=== PATIENT | male | born 1955 | race Caucasian/White ===

== ENCOUNTER → 2019-11-02 10:06 | Outpatient (BNVA) | payer MEDICARE, MEDICAID, SELFPAY | PROVIDERS: Family Provider Internal Medicine; PCP Internal Medicine; Visit Provider Specialist | DX: G40.319 Generalized idiopathic epilepsy and epileptic syndromes, intractable, without status epilepticus (principal) | CPT/HCPCS: 99213 ==

== ENCOUNTER → 2021-05-22 09:49 | Outpatient (BNVA) | payer MEDICARE, MEDICAID, SELFPAY | PROVIDERS: Family Provider Internal Medicine; PCP Internal Medicine; Visit Provider Specialist | DX: G40.219 Localization-related (focal) (partial) symptomatic epilepsy and epileptic syndromes with complex partial seizures, intractable, without status epilepticus (principal); G40.419 Other generalized epilepsy and epileptic syndromes, intractable, without status epilepticus; Z87.820 Personal history of traumatic brain injury; R26.89 Other abnormalities of gait and mobility; Z99.3 Dependence on wheelchair | CPT/HCPCS: 99212; 99214 ==

== ENCOUNTER 2021-08-24 11:50 | Emergency (ER) | payer MEDICARE, MEDICAID, SELFPAY ==
[2021-08-24 11:57] VITALS: BP 134/72; PULSE 70; RESP 18; TEMP 37; O2SAT 95
--- NOTE | 2021-08-24 12:02 | CTR_ITS ---
PROCEDURE INFORMATION: Exam: CT Maxillofacial Without Contrast Exam date and time: 08/24/2021 12:18 PM Age: 66 years old Clinical indication: Injury or trauma; Blunt trauma (contusions or hematomas); Orbit/periorbital; Right; Injury date: 08/24/21; Injury details: Ground level fall x today. RT superior orbital laceration, ; prior surgery; Surgery type: Traumatic brain injury; Additional info: R superior orbital lac TECHNIQUE: Imaging protocol: Computed tomography images of the face without contrast. Radiation optimization: All CT scans at this facility use at least one of these dose optimization techniques: automated exposure control; mA and/or kV adjustment per patient size (includes targeted exams where dose is matched to clinical indication); or iterative reconstruction. COMPARISON: CT head wo con* [id number] 08/24/2021 12:14 PM RADIATION DOSE METRICS: Total DLP (mGy-cm): 734.23 FINDINGS: Orbital cavities: Orbits are normal. Globes are unremarkable. Bones/joints: No acute fracture. Paranasal sinuses: Normal. No air-fluid levels. Soft tissues: There is a right supraorbital soft tissue laceration. 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 CT/CT facial bones wo con* [id number] IMPRESSION: No acute bony abnormality.
--- NOTE | 2021-08-24 12:02 | CTR_ITS ---
PROCEDURE INFORMATION: Exam: CT Cervical Spine Without Contrast Exam date and time: 08/24/2021 12:20 PM Age: 66 years old Clinical indication: Injury or trauma; Blunt trauma; Injury date: 08/24/21; Injury details: Ground level fall x today. RT superior orbital laceration, ; prior surgery; Surgery type: Traumatic brain injury; Additional info: Fall/trauma TECHNIQUE: Imaging protocol: Computed tomography images of the cervical spine without contrast. Radiation optimization: All CT scans at this facility use at least one of these dose optimization techniques: automated exposure control; mA and/or kV adjustment per patient size (includes targeted exams where dose is matched to clinical indication); or iterative reconstruction. COMPARISON: CT facial bones wo con* [id number] 08/24/2021 12:18 PM RADIATION DOSE METRICS: Total DLP (mGy-cm): 604.06 FINDINGS: Bones/joints: No acute fracture. Normal alignment. Discs/Spinal canal/Neural foramina: Chronic degenerative changes are present with disc space narrowing sclerosis and osteophytes especially at C5-C6 and C6-C7. There is mild spinal stenosis and neural foraminal narrowing. No severe spinal canal stenosis. Lungs: Lung apices are normal. Soft tissues: Unremarkable. CT/CT cervical spin wo con* [id number] IMPRESSION: Chronic degenerative disease. No acute abnormality.
--- NOTE | 2021-08-24 12:02 | CTR_ITS ---
PROCEDURE INFORMATION: Exam: CT Head Without Contrast Exam date and time: 08/24/2021 12:14 PM Age: 66 years old Clinical indication: Injury or trauma; Blunt trauma (contusions or hematomas); Injury date: 08/24/21; Injury details: Ground level fall x today. RT superior orbital laceration, ; prior surgery; Surgery type: Traumatic brain injury; Additional info: Fall/trauma; R superior orbital laceration TECHNIQUE: Imaging protocol: Computed tomography of the head without contrast. Radiation optimization: All CT scans at this facility use at least one of these dose optimization techniques: automated exposure control; mA and/or kV adjustment per patient size (includes targeted exams where dose is matched to clinical indication); or iterative reconstruction. COMPARISON: CT head wo con* [id number] 01/03/2017 8:32 AM RADIATION DOSE METRICS: Total DLP (mGy-cm): 1465.97 FINDINGS: Brain: There is generalized chronic atrophy with prominence of the ventricles and sulci. There is left parietal encephalomalacia consistent with old injury. There is decreased white matter density which indicates chronic small vessel white matter ischemia. There is no intracranial hemorrhage or other acute abnormality. Cerebral ventricles: The ventricles are enlarged due to chronic atrophy and the left cephalo malacia. Paranasal sinuses: Visualized sinuses are unremarkable. No fluid levels. Mastoid air cells: Visualized mastoid air cells are well aerated. 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 Bones/joints: Old left craniotomy. Soft tissues: There is subcutaneous laceration over the left supraorbital region. CT/CT head wo con* [id number] IMPRESSION: No acute intracranial abnormality.
--- NOTE | 2021-08-24 12:03 | W.ED.HEATRA ---
HPI - Head Injury General: Chief complaint: Fall Stated complaint: FALL/HEAD LAC Time Seen by Provider: 08/24/21 11:58 Source: EMS Mode of arrival: EMS Limitations: other (TBI) History of Present Illness: Patient is a 66-year-old male with a history of a TBI and epilepsy here from his residence of [facility] following a fall. According to EMS and [facility], patient is wheelchair-bound and cannot ambulate on his own. Staff at [facility] (I contacted them myself) stated that patient has a transfer bar on his bed and stated he used this bar to try to get out of bed on his own and ended up falling and striking his right superior orbital region on a portion of the bed. No epileptic activity. They reported patient seemed to be at his mental baseline following the event. MD Complaint: head injury Onset (ago): hour(s) Mechanism of Injury: fall Place: home (nursing facility) Loss of Consciousness: no Location of injury: frontal Other Injuries: none Review of Systems General: Reports: ROS unobtainable due to mental status PFS ED PFSH: Medical History Diffuse traumatic brain injury Generalized epilepsy, intractable Resume routine monitoring of dilantin levels q 3 months. Major depressive disorder, single episode, unspecified Social History Smoking and tobacco status: current every day smoker cigarettes Quit status (tobacco): not considering quitting Second hand smoke exposure: Yes Smoking risk assessment/counseling performed?: Yes Tobacco counseling given: provider counseling and counseling >3 minutes Alcohol intake: former Caregiver/support person: Yes Lives independently: No Housing: [facility] Current occupational status: retired Current gender identity: Male Physical Exam Const: COMMON NORMALS: no acute distress, alert and well nourished EXAM LIMITATIONS: other limitations (history of TBI; would not normally know orientation questions) GENERAL APPEARANCE: cooperative ORIENTATION/CONSCIOUSNESS: Yes awake and Yes oriented to person OTHER: attempts for orientation but is inaccurate HENMT: COMMON NORMALS: normocephalic, atraumatic and Normal external nose present HEAD & SCALP: normal to inspection, normocephalic and atraumatic FACE & SINUS: other (large laceration to R superior orbital region); no crepitus and no ecchymosis FACE & SINUS IMAGES: 1. laceration NOSE: Normal external nose present MOUTH: other (no intraoral injuries noted) Eye: COMMON NORMALS: Equal, round and reactive pupils present and EOMs intact bilaterally GENERAL EYE: appearance normal, both eyes and all related structures and normal light reflex PUPIL: Yes Equal, round and reactive pupils present DIRECT OPHTHALMOSCOPY: Yes normal light reflex Neck/C-Spine: GENERAL: Yes normal visual inspection CERVICAL SPINE: Yes cervical ROM normal and No Cervical spine tenderness Resp: COMMON NORMALS: normal respiratory effort and clear to auscultation bilaterally AUSCULTATION: clear to auscultation bilaterally Cardio: COMMON NORMALS: regular rate and regular rhythm RATE: regular rate RHYTHM: regular rhythm Back/Pelvis: COMMON NORMALS: thoracic and lumbar spine normal to inspection Extremity: COMMON NORMALS: normal to inspection Neuro: VIANEY COMA SCALE: document GCS findings Brainard coma scale eye opening: Spontaneous Vianey coma scale verbal response: Confused (chronic for patient) Vianey coma scale motor response: Obey commands Vianey coma scale total score: 14 SENSORIUM/ORIENTATION: Yes alert and Yes oriented to person Skin: NARRATIVE SKIN EXAM: laceration to R superior orbit; otherwise normal skin exam Procedures Laceration Laceration 1: Site: face Side (If applicable): right Size (cm): 3.5 Description: stellate and irregular Depth: involves muscle layer Local Anesthetic: lidocaine 1% and with epi Amount of anesthesia used (mL): 5.0 Pre-repair: wound explored and irrigated extensively Skin layer closed with: nylon Size (cm): 4-0 Number of sutures: 9 Technique: simple, interrupted and running Muscle layer closed with: vicryl Size: 5-0 Number of sutures: 5 Technique: running Course Vital Signs: Vital signs: Vital Signs Temperature 98.6 F 08/24/21 11:57 Pulse Rate 70 08/24/21 11:57 Respiratory Rate 18 08/24/21 11:57 Blood Pressure 134/72 08/24/21 11:57 Pulse Oximetry 95 08/24/21 11:57 MDM - Head Injury Medcial Decision Making CTs negative. Laceration repaired as documented. No other injuries requiring intervention at this time. Patient is stable for DC back to [facility]. Lab Data Radiology Impressions Cervical Spine CT 08/24/21 12:02 IMPRESSION: Chronic degenerative disease. No acute abnormality. Face CT 08/24/21 12:02 IMPRESSION: No acute bony abnormality. Head CT 08/24/21 12:02 IMPRESSION: No acute intracranial abnormality. Discharge Plan Discharge Patient Disposition: Home Clinical Impression: Fall from bed Qualifiers: Encounter type: initial encounter Qualified Code(s): W06.XXXA - Fall from bed, initial encounter Laceration of right orbital rim without complication Qualifiers: Encounter type: initial encounter Qualified Code(s): S01.111A - Laceration without foreign body of right eyelid and periocular area, initial encounter Condition: Stable Prescriptions: No Action citalopram 40 mg tablet 40 mg PO DAILY 0RF magnesium hydroxide [Milk of Magnesia] 400 mg/5 mL suspension 30 ml PO DAILY PRN0RF acetaminophen [Tylenol] 325 mg tablet 325 mg PO QID PRN0RF lamotrigine [Lamictal] 200 mg tablet 200 mg PO BID 0RF olanzapine [Zyprexa] 5 mg tablet 5 mg PO .AT HS 0RF simvastatin 10 mg tablet 10 mg PO DAILY 0RF tamsulosin 0.4 mg capsule 0.4 mg PO DAILY 0RF pantoprazole [Protonix] 40 mg tablet,delayed release (DR/EC) 40 mg PO DAILY 0RF folic acid 400 mcg tablet 0.4 mg PO DAILY 0RF furosemide [Lasix] 40 mg tablet 40 mg PO DAILY 0RF ondansetron HCl [Zofran] 4 mg tablet 4 mg PO Q8H 0RF cyanocobalamin (vitamin B-12) 1,000 mcg capsule 1,000 mcg PO DAILY 0RF clobazam [Onfi] 20 mg tablet 20 mg PO DAILY Qty: 30 3RF phenytoin sodium extended 200 mg capsule 200 mg PO BID Qty: 60 0RF Discharge Orders: Discharge ED (Routine); Ordered 08/24/21 Ordered By: Kyleigh Lemons Referrals: Sheldon Munoz MD [Primary Care Provider] - Patient Instructions: Laceration (DC), Head Injury (DC) Activity Restrictions/Additional Instructions: Keep wound/laceration clean with warm soap and water twice daily. Monitor for signs of infection such as redness, swelling, increased pain, or drainage. Please seek medical re-evaluation if these occur. If you received sutures today these will need to be removed (unless you were told by the provider that they are absorbable). The provider should have discussed with you the length of time until removal-7 DAYS. You may return to the emergency department for this service. If your wound was closed with Steri-Strips or glue/adhesive these will fall off within the next week or so. Coding Level of Care Code ED Typing Bookkeeper for Jalen Schulz Exam Comprehensive
--- NOTE | 2021-08-24 13:23 | PC.NURSE ---
Report called to Troy at [facility].
[2021-08-24 14:39] VITALS: BP 129/79; PULSE 72; RESP 18; O2SAT 94
[2021-08-24 16:04] VITALS: BP 135/72; PULSE 86; RESP 16; O2SAT 96
--- NOTE | 2021-08-24 16:30 | PC.NURSE ---
Incontinent of urine, skin cleaned and new adult diaper placed.
== END 2021-08-24 19:38 | disposition home or self-care (01) ==
PROVIDERS: Emergency Provider Physician Assistant; PCP Internal Medicine
DX: S01.111A Laceration without foreign body of right eyelid and periocular area, initial encounter (principal); W06.XXXA Fall from bed, initial encounter; Y92.129 Unspecified place in nursing home as the place of occurrence of the external cause; Z99.3 Dependence on wheelchair; F17.210 Nicotine dependence, cigarettes, uncomplicated; Z87.820 Personal history of traumatic brain injury
CPT/HCPCS: 12052; 70450; 70486; 72125; 99283

== ENCOUNTER → 2022-07-02 14:40 | Outpatient (BNVA) | payer MEDICARE, MEDICAID, SELFPAY | PROVIDERS: PCP Internal Medicine; Visit Provider Specialist | DX: G40.319 Generalized idiopathic epilepsy and epileptic syndromes, intractable, without status epilepticus (principal); Z87.820 Personal history of traumatic brain injury | CPT/HCPCS: 99213 ==

== ENCOUNTER → 2023-07-03 09:21 | Outpatient (BNVA) | payer MEDICARE, MEDICAID, SELFPAY | PROVIDERS: PCP Internal Medicine; Visit Provider Specialist | DX: G40.309 Generalized idiopathic epilepsy and epileptic syndromes, not intractable, without status epilepticus (principal) | CPT/HCPCS: 99213 ==

== ENCOUNTER 2024-05-14 16:55 | Emergency (ER) | payer MEDICARE, MEDICAID, SELFPAY ==
[2024-05-14] VITALS (10 sets, daily range): BP systolic 121–148; BP diastolic 60–86; PULSE 56–82; RESP 12–16; TEMP 36.5; O2SAT 92–96; BMI 23.6
--- NOTE | 2024-05-14 16:55 | XRR_ITS ---
PROCEDURE INFORMATION: Exam: XR Chest Exam date and time: 05/14/2024 5:48 PM Age: 69 years old Clinical indication: Other: Stroke signs; Additional info: Stroke alert, previous right sided stroke TECHNIQUE: Imaging protocol: Radiologic exam of the chest. Views: 1 view. COMPARISON: CT cervical spin wo con* [id number] 08/24/2021 12:20 PM FINDINGS: Lungs: Unremarkable. No consolidation. Pleural spaces: Unremarkable. No pleural effusion. No pneumothorax. Heart/Mediastinum: Unremarkable. No cardiomegaly. Bones/joints: Unremarkable. XR/XR chest 1V portable [id number] IMPRESSION: No acute findings.
--- NOTE | 2024-05-14 16:56 | CTR_ITS ---
PROCEDURE INFORMATION: Exam: CT Head Without Contrast Exam date and time: 05/14/2024 4:53 PM Age: 69 years old Clinical indication: Stroke-like symptoms; Speech disturbance; Additional info: Symptoms of acute stroke TECHNIQUE: Imaging protocol: Computed tomography of the head without contrast. Radiation optimization: All CT scans at this facility use at least one of these dose optimization techniques: automated exposure control; mA and/or kV adjustment per patient size (includes targeted exams where dose is matched to clinical indication); or iterative reconstruction. Other technique: STROKE PROTOCOL was implemented. COMPARISON: CT head wo con* [id number] 08/24/2021 12:14 PM RADIATION DOSE METRICS: Total DLP (mGy-cm): 1134.2 FINDINGS: Brain: Left parietal lobe cystic encephalomalacia. Moderate hypoattenuating foci are noted in the central cerebral, posterior superior periatrial and anterior lateral ventricular periventricular white matter bilaterally. No intracranial hemorrhage. No mass or acute cortical infarction identified. Ventricles: Prominence of the ventricular system and subarachnoid spaces is consistent with the patient's age of 69 years. Paranasal sinuses: Visualized sinuses are unremarkable. No fluid levels. Mastoid air cells: Visualized mastoid air cells are well aerated. Bones: Previous left pterional craniotomy. Soft tissues: Unremarkable. Vasculature: Left parasellar vascular aneurysm clipping. Atherosclerotic calcifications are present involving the carotid artery siphons bilaterally and the left vertebral artery. CT/CT head thrombolytic [id number] IMPRESSION: 1. Left parietal lobe cystic encephalomalacia. 2. Age appropriate supratentorial and infratentorial atrophy. 3. Moderate chronic white matter microvascular ischemic disease. 4. No acute intracranial abnormality identified. ASSESSMENT: ASPECTS (Jeanine Stroke Program Early CT Score) is 10.
--- NOTE | 2024-05-14 17:06 | ECG_ITS ---
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 Measurements Intervals [place] Rate: 58 P: 23 MN: 198 QRS: -52 QRSD: 95 T: -37 QT: 436 QTc: 429 Interpretive Statements SINUS BRADYCARDIA LEFT AXIS DEVIATION [QRS AXIS < -30] LOW QRS VOLTAGE IN PRECORDIAL LEADS [QRS DEFLECTION < 1.0 mV IN CHEST LEADS] PATTERN CONSISTENT WITH PULMONARY DISEASE INCOMPLETE RIGHT BUNDLE BRANCH BLOCK [90+ ms QRS DURATION, TERMINAL R IN V1/V2, 40+ ms S IN I/aVL/V4/V5/V6] ST DEVIATION AND MODERATE T-WAVE ABNORMALITY, CONSIDER INFERIOR ISCHEMIA [-0.1+ mV T-WAVE IN II/aVF] Compared to ECG 10/20/2016 20:52:30 T-wave abnormality now present Possible ischemia now present Sinus rhythm no longer present Electronically Signed On 05-15-2024 08:59:21 DIRECTOR IMMUNOLOGY by Lon Valerio M.D. [email or web address]
--- NOTE | 2024-05-14 17:16 | ED_ITS ---
HPI - Neuro Symptoms/Deficit 2 General: Chief Complaint: Neuro Symptoms/Deficit Stated Complaint: stroke alert Time Seen by Provider: 05/14/24 16:58 History of Present Illness: Patient seen and via EMS from correction. Patient was not able to hold a cigarette as well as normal and may be a speech was little bit off per correction. Patient has a known history of a traumatic brain injury prior stroke and prior aneurysm. He has baseline dysphagia, baseline left-sided facial droop and baseline right sided significant weakness. Related Data Home Medications Medication Instructions Recorded Confirmed acetaminophen 325 mg tablet 325 mg PO QID PRN 08/05/19 05/11/24 (Tylenol) citalopram 40 mg tablet 40 mg PO DAILY 08/05/19 05/11/24 lamotrigine 200 mg tablet 200 mg PO BID 08/05/19 05/11/24 (Lamictal) magnesium hydroxide 400 mg/5 mL 30 ml PO DAILY PRN 08/05/19 05/11/24 oral suspension (Milk of Magnesia) olanzapine 5 mg tablet (Zyprexa) 5 mg PO .AT HS 08/05/19 05/11/24 simvastatin 10 mg tablet 10 mg PO DAILY 08/05/19 05/11/24 tamsulosin 0.4 mg capsule 0.4 mg PO DAILY 08/05/19 05/11/24 cyanocobalamin (vitamin B-12) 1,000 mcg PO DAILY 05/22/21 05/11/24 1,000 mcg capsule folic acid 400 mcg tablet 0.4 mg PO DAILY 05/22/21 05/11/24 furosemide 40 mg tablet (Lasix) 40 mg PO DAILY 05/22/21 05/11/24 ondansetron HCl 4 mg tablet 4 mg PO Q8H 05/22/21 05/11/24 (Zofran) pantoprazole 40 mg tablet,delayed 40 mg PO DAILY 05/22/21 05/11/24 release (Protonix) Previous Rx's Medication Instructions Recorded clobazam 20 mg tablet (Onfi) 20 mg PO DAILY #30 tabs 11/23/19 phenytoin sodium extended 200 mg 200 mg PO BID #60 caps 03/28/21 capsule Allergies Allergy/AdvReac Type Severity Reaction Status Date / Time aspirin Allergy Unknown Verified 05/11/24 14:08 Penicillins Allergy Unknown Verified 05/11/24 14:08 Review of Systems 2 General: Reports: ROS unobtainable due to medical condition (Baseline dysarthria) PFSH ED 2 PFSH: Medical History Unspecified open wound, right thigh, initial encounter Open wound of right thigh Generalized epilepsy, intractable Resume routine monitoring of dilantin levels q 3 months. Diffuse traumatic brain injury Major depressive disorder, single episode, unspecified Social History Smoking and tobacco/nicotine status: current every day tobacco/nicotine user cigarettes Quit status (tobacco/nicotine): not considering quitting Second hand smoke exposure: Yes Alcohol intake: former Substance/Drug Use: former Caregiver/support person: Yes Lives independently: No Housing: Long-Term Current occupational status: retired Do you think of yourself as: Straight/Heterosexual Current gender identity: Male Physical Exam 2 Const: COMMON NORMALS: no acute distress OTHER: Unable to obtain NIH due to unknown baseline severity but suspect it would be less than 2 Resp: COMMON NORMALS: normal respiratory effort, No use of accessory muscles and clear to auscultation bilaterally AUSCULTATION: clear to auscultation bilaterally Cardio: COMMON NORMALS: regular rate and regular rhythm RATE: regular rate RHYTHM: regular rhythm GI: COMMON NORMALS: Soft to palpation and non-tender PALPATION: Yes Soft to palpation Neuro: OTHER: Patient appears to be at baseline per EMS report with known deficits from prior stroke Psych: COMMON NORMALS: normal affect OTHER: Baseline Course 2 Vital Signs: Vital signs: Vital Signs Temperature 97.7 F 05/14/24 17:00 Pulse Rate 62 05/14/24 22:49 Respiratory Rate 12 05/14/24 18:15 Blood Pressure 147/70 05/14/24 22:49 Pulse Oximetry 92 05/14/24 22:49 Oxygen Delivery Me thod Room Air 05/14/24 20:00 MDM - Neuro Symptoms/Deficit Medical Decision Making Patient with some baseline deficits but no severe right findings on exam for acute deficits. Patient with a negative head CT with aspect score 10. Patient's labs otherwise show no acute findings. Patient appears to be at his baseline. He will be discharged back to the care center. Lab Data 05/14/24 17:25 05/14/24 17:25 Radiology Impressions Chest X-Ray 05/14/24 16:55 IMPRESSION: No acute findings. Head CT 05/14/24 16:56 IMPRESSION: 1. Left parietal lobe cystic encephalomalacia. 2. Age appropriate supratentorial and infratentorial atrophy. 3. Moderate chronic white matter microvascular ischemic disease. 4. No acute intracranial abnormality identified. ASSESSMENT: ASPECTS (Jeanine Stroke Program Early CT Score) is 10. ADDENDUM: 05/14/24 9560 THIS REPORT CONTAINS FINDINGS THAT MAY BE CRITICAL TO PATIENT CARE. The findings were verbally communicated by me to Dr. Allen via telephone conference at 5:08 PM FILER FINISH on 05/14/2024. The findings were acknowledged and understood. Laboratory Results WBC 7.76 10^3/uL (3.29-11.43) 05/14/24 17: RBC 4.38 10^6/uL (3.85-5.65) 05/14/24 17: Hgb 14.00 g/dL (11.27-16.99) 05/14/24 17: Hct 42.6 % (37-53) 05/14/24 17: MCV 97.3 fl (82-101) 05/14/24 17: MCH 32.0 pg (27-33) 05/14/24 17: MCHC 32.9 g/dL (30-55) 05/14/24 17: RDW 13.1 % (12.1-15.1) 05/14/24 17: Plt Count 288 10^3/cmm (157-399) 05/14/24 17: MPV 10.1 fL (7.4-10.4) 05/14/24 17:25 Neut % (Auto) 61.8 % 05/14/24 17:25 Lymph % (Auto) 27.7 % 05/14/24 17:25 Coke % (Auto) 8.0 % 05/14/24 17: Eos % (Auto) 1.4 % 05/14/24 17:25 Baso % (Auto) 0.8 % 05/14/24 17: Neut # (Auto) 4.80 10^3/uL (1.8-7.7) 05/14/24 17:25 Lymph # (Auto) 2.2 10^3/uL (0.8-4.8) 05/14/24 17:25 Coke # (Auto) 0.6 10^3/uL (0.2-0.9) 05/14/24 17:25 Eos # (Auto) 0.1 10^3/uL (0.0-0.8) 05/14/24 17:25 Baso # (Auto) 0.1 10^3/uL (0.0-0.1) 05/14/24 17:25 Nucleated RBC % (auto) 0 % 05/14/24 17:25 Nucleated RBCs # 0.0 /100WBC 05/14/24 17:25 PT 12.90 SECONDS (12.1-14.9) 05/14/24 17: INR 0.91 (0.8-1.2) 05/14/24 17:25 APTT 51.0 SECONDS (23.9-36.7) H 05/14/24 17:25 Sodium 139 mmol/L (136-145) 05/14/24 17:25 Potassium 4.4 mmol/L (3.5-5.1) 05/14/24 17:25 Chloride 98 mmol/L (98-107) 05/14/24 17:25 Carbon Dioxide 32 mmol/L (22-29) H 05/14/24 17:25 Anion Gap 13.4 (5-19) 05/14/24 17:25 BUN 14 mg/dL (8-23) 05/14/24 17:25 Creatinine 0.7 mg/dL (0.7-1.2) 05/14/24 17:25 GFR Calculation 112.5 mL/min (90-130) 05/14/24 17:25 Glucose 71 mg/dL (65-115) 05/14/24 17:25 POC Glucose 81 mg/dL (70-110) 05/14/24 17:09 Calculated Osmolality 287 mOsm/kg (285-295) 05/14/24 17:25 Calcium 9.3 mg/dL (8.5-10.5) 05/14/24 17:25 Total Bilirubin 0.3 mg/dL (0.15-1.2) 05/14/24 17:25 AST 14 U/L (0-40) 05/14/24 17:25 ALT 8 U/L (0-41) 05/14/24 17:25 Alkaline Phosphatase 141 U/L (40-130) H 05/14/24 17:25 Total Protein 8.7 g/dL (6.6-8.7) 05/14/24 17:25 Albumin 4.6 g/dL (3.5-5.2) 05/14/24 17:25 Globulin 4.1 g/dL (1.3-4.6) 05/14/24 17:25 Urine Color Yellow (Yellow) 05/14/24 18:55 Urine Appearance Clear (CLEAR) 05/14/24 18:55 Urine pH 6.0 (5-7) 05/14/24 18:55 Ur Specific [place] 1.014 (1.005-1.030) 05/14/24 18:55 Urine Protein Negative (Negative) 05/14/24 18:55 Urine Glucose (UA) Negative (Normal) 05/14/24 18:55 Urine Ketones Negative (Negative) 05/14/24 18:55 Urine Blood Negative (Negative) 05/14/24 18:55 Urine Nitrate Negative (Negative) 05/14/24 18:55 Urine Bilirubin Negative (Negative) 05/14/24 18:55 Urine Urobilinogen 1.0 mg/dL (Negative) 05/14/24 18:55 Ur Leukocyte Esterase Negative (Negative) 05/14/24 18:55 Urine RBC 0-2 /hpf (0-2) 05/14/24 18:55 Urine WBC 0-5 /hpf (0-5) 05/14/24 18:55 Ur Squamous Epith Cells 0-5 /hpf (0-5) 05/14/24 18:55 Amorphous Sediment Not Reportable 05/14/24 18:55 Urine Bacteria None seen /hpf (NONE) 05/14/24 18:55 Hyaline Casts 2.46 /lpf 05/14/24 18:55 Urine Opiates Screen Negative ng/mL (Negative) 05/14/24 18:55 Ur Barbiturates Screen Positive ng/mL (Negative) H 05/14/24 18:55 Ur Phencyclidine Scrn Negative ng/mL (Negative) 05/14/24 18:55 Ur Amphetamines Screen Negative ng/mL (Negative) 05/14/24 18:55 U Benzodiazepines Scrn Positive ng/mL (Negative) H 05/14/24 18:55 Urine Cocaine Screen Negative ng/mL (Negative) 05/14/24 18:55 U Marijuana (THC) Screen Negative ng/mL (Negative) 05/14/24 18:55 All radiology interpretation(s) finalized by discharge Discharge Plan Discharge Patient Disposition: Home Clinical Impression: Diffuse traumatic brain injury, Transient cerebral ischemia Condition: Stable Prescriptions: No Action citalopram 40 mg tablet 40 mg PO DAILY magnesium hydroxide [Milk of Magnesia] 400 mg/5 mL suspension 30 ml PO DAILY PRN acetaminophen [Tylenol] 325 mg tablet 325 mg PO QID PRN lamotrigine [Lamictal] 200 mg tablet 200 mg PO BID olanzapine [Zyprexa] 5 mg tablet 5 mg PO .AT HS simvastatin 10 mg tablet 10 mg PO DAILY tamsulosin 0.4 mg capsule 0.4 mg PO DAILY pantoprazole [Protonix] 40 mg tablet,delayed release (DR/EC) 40 mg PO DAILY folic acid 400 mcg tablet 0.4 mg PO DAILY furosemide [Lasix] 40 mg tablet 40 mg PO DAILY ondansetron HCl [Zofran] 4 mg tablet 4 mg PO Q8H cyanocobalamin (vitamin B-12) 1,000 mcg capsule 1,000 mcg PO DAILY lidocaine HCl [Lidocaine Viscous] 2 % solution 1 applic topical ONCE Qty: 1 0RF lidocaine HCl [Lidocaine Viscous] 2 % solution 1 applic topical ONCE Qty: 1 0RF lidocaine HCl [Lidocaine Viscous] 2 % solution 1 applic topical ONCE Qty: 1 0RF lidocaine HCl [Lidocaine Viscous] 2 % solution 1 applic topical ONCE Qty: 1 0RF clobazam [Onfi] 20 mg tablet 20 mg PO DAILY Qty: 30 3RF phenytoin sodium extended 200 mg capsule 200 mg PO BID Qty: 60 0RF Discharge Orders: Discharge ED (Routine); Ordered 05/14/24 Ordered By: Roger Allen Referrals: Sheldon Munoz MD [Primary Care Provider] - Discharge Diet: Usual diet Discharge Activity: Resume usual activity Patient Instructions: Cognitive Disorders after Traumatic Brain Injury (ED), Opioid Safety, Pain Management, TIA Activity Restrictions/Additional Instructions: Please have patient follow-up with his primary care provider for continued outpatient management and reevaluation. Continue current care. Coding Level of Care Code ED Powder Blender for Jalen Schulz
[2024-05-14 17:24] LABS: Glucose Point of Care 81 mg/dL (70-110)
[2024-05-14 17:44] LABS: Basophils # 0.1 10^3/uL (0.0-0.1); Basophils % 0.8 %; Eosinophils # 0.1 10^3/uL (0.0-0.8); Eosinophils % 1.4 %; Hematocrit 42.6 % (37-53); Lymphocytes # 2.2 10^3/uL (0.8-4.8); Lymphocytes % 27.7 %; Mean Corpuscular HGB Conc 32.9 g/dL (30-55); Mean Corpuscular Volume 97.3 fl (82-101); Mean Platelet Volume 10.1 fL (7.4-10.4); Monocytes # 0.6 10^3/uL (0.2-0.9); Neutrophils % 61.8 %; Nucleated Red Blood Cells % 0 %; Platelet Count 288 10^3/cmm (157-399); Red Blood Count 4.38 10^6/uL (3.85-5.65); Red Cell Distribution Width 13.1 % (12.1-15.1); White Blood Count 7.76 10^3/uL (3.29-11.43)
[2024-05-14 17:53] LABS: INR 0.91 (0.8-1.2)
[2024-05-14 17:57] LABS: Alanine Aminotransferase 8 U/L (0-41); Albumin Level 4.6 g/dL (3.5-5.2); Alkaline Phosphatase 141 U/L (40-130); Anion Gap 13.4 (5-19); Aspartate Amino Transferase 14 U/L (0-40); Blood Urea Nitrogen 14 mg/dL (8-23); Calcium 9.3 mg/dL (8.5-10.5); Carbon Dioxide 32 mmol/L (22-29); Chloride 98 mmol/L (98-107); Creatinine Clr Calc Pharmacy 84.9852; Globulin 4.1 g/dL (1.3-4.6); Glomerular Filtration Rate 112.5 mL/min (90-130); Glucose 71 mg/dL (65-115); Osmolality Calculated 287 mOsm/kg (285-295); Potassium 4.4 mmol/L (3.5-5.1); Sodium 139 mmol/L (136-145); Total Bilirubin 0.3 mg/dL (0.15-1.2); Total Protein 8.7 g/dL (6.6-8.7)
[2024-05-14 19:11] LABS: Bilirubin Urine Negative (Negative); Blood Urine Negative (Negative); Glucose Urine UA Negative (Normal); Ketones Urine Negative (Negative); Leukocyte Esterase Urine Negative (Negative); Nitrate Urine Negative (Negative); Protein Urine Negative (Negative); Specific Gravity, Urine 1.014 (1.005-1.030); Urine Appearance Clear (CLEAR); Urine Color Yellow (Yellow)
[2024-05-14 19:16] LABS: Add Urine Microscopic? YES; Bacteria Urine None Seen /hpf; Hyaline Casts Urine 2.46 /lpf; RBC Urine 0-2 /hpf (0-2); Squamous Epithelial Cell Urine 0-5 /hpf (0-5); WBC Urine 0-5 /hpf (0-5)
[2024-05-14 19:18] LABS: Amphetamines Screen Urine Negative (Negative); Barbiturates Screen Urine Positive (Negative); Benzodiazepines Screen Urine Positive (Negative); Cocaine Screen Urine Negative (Negative); Opiate Screen Urine Negative (Negative); PCP Screen Urine Negative (Negative); THC Screen Urine Negative (Negative)
[2024-05-14 19:33] LABS: UA Slide Review UA Slide Review Perf
--- NOTE | 2024-05-14 20:25 | PC.NURSE ---
pt report called to jag kramer to nurse Bárbara at 2024.
== END 2024-05-14 22:30 | disposition home or self-care (01) ==
PROVIDERS: Emergency Medicine; Emergency Provider Student in an Organized Health Care Education/Training Program; PCP Internal Medicine
DX: S06.2XAA Diffuse traumatic brain injury with loss of consciousness status unknown, initial encounter (principal); G45.9 Transient cerebral ischemic attack, unspecified; F17.210 Nicotine dependence, cigarettes, uncomplicated; X58.XXXA Exposure to other specified factors, initial encounter
CPT/HCPCS: 36416; 70450; 71045; 80053; 80306; 81001; 82962; 85025; 85610; 85730; 93005; 99285